=== PATIENT | male | born 1985 | race Caucasian/White ===

== ENCOUNTER 2023-10-14 17:13 | Emergency (ER) | payer OTHER ==
[2023-10-14 17:36] VITALS: TEMP 98.2
--- NOTE | 2023-10-14 19:09 | ED ---
General Adult HPI - General Chief complaint: Extremity Problem,Nontraumatic Stated complaint: left knee leg pain Time Seen by Provider: 10/14/23 18:30 Source: patient, RN notes reviewed Mode of arrival: ambulatory Limitations: no limitations - History of Present Illness Initial comments: 38-year-old male presents emergency department chief complaint of left knee pain and swelling 3 days. He states that there is swelling above the left knee. He reports decreased ROM. Patient states that he underwent total knee replacement around 5 months ago. He does report that he has on Keflex and another antibiotic for an infection in his toe of the right foot. Past medical history includes diabetes and hypertension - Related Data Allergies Allergy/AdvReac Type Severity Reaction Status Date / Time No Known Allergies Allergy Verified 10/14/23 17:25 Review of Systems ROS Statement: Those systems with pertinent positive or pertinent negative responses have been documented in the HPI. ROS Other: All systems not noted in ROS Statement are negative. Past Medical History Past Medical History: Hypertension History of Any Multi-Drug Resistant Organisms: None Reported Past Surgical History: Orthopedic Surgery Additional Past Surgical History / Comment(s): left knee surgery and leg surgery Past Psychological History: Depression Smoking Status: Former smoker Past Alcohol Use History: Occasional Past Drug Use History: Heroin, Opiates General Exam Limitations: no limitations General appearance: alert, in no apparent distress Head exam: Present: atraumatic, normocephalic, normal inspection Eye exam: Present: normal appearance, PERRL, EOMI. Absent: scleral icterus, conjunctival injection, periorbital swelling ENT exam: Present: normal exam, mucous membranes moist Neck exam: Present: normal inspection. Absent: tenderness, meningismus, lymphadenopathy Respiratory exam: Present: normal lung sounds bilaterally. Absent: respiratory distress, wheezes, rales, rhonchi, stridor Cardiovascular Exam: Present: regular rate, normal rhythm, normal heart sounds. Absent: systolic murmur, diastolic murmur, rubs, gallop, clicks Extremities exam: Present: tenderness, normal capillary refill, other (DP and PT pulses 2+, left lower extremity swelling). Absent: full ROM Neurological exam: Present: alert, oriented X3 Psychiatric exam: Present: normal affect, normal mood Skin exam: Present: warm, dry, intact, normal color Course Vital Signs 10/14/23 10/14/23 17:21 22:42 Temperature 98.2 F Pulse Rate 71 84 Respiratory 16 20 Rate Blood Pressure 155/92 180/95 O2 Sat by Pulse 97 98 Oximetry Medical Decision Making - Medical Decision Making Was pt. sent in by a medical professional or institution (SUZANNE Carlson, MYCOLOGY TEACHER, urgent care, hospital, or long-term...) When possible be specific @ -[place] Did you speak to anyone other than the patient for history (EMS, parent, family, police, friend...)? What history was obtained from this source @ -No Did you review nursing and triage notes (agree or disagree)? Why? @ -I reviewed and agree with nursing and triage notes Were old charts reviewed (outside hosp., previous admission, EMS record, old EKG, old radiological studies, urgent care reports/EKG's, long-term records)? Report findings @ -No old charts were reviewed Differential Diagnosis (chest pain, altered mental status, abdominal pain women, abdominal pain men, vaginal bleeding, weakness, fever, dyspnea, syncope, headache, dizziness, GI bleed, back pain, seizure, CVA, palpatations, mental health, musculoskeletal)? @ -Differential Musculoskeletal Muscular strain, contusion, ligament sprain, fracture, arthritis, septic arthritis, bursitis, cellulitis, muscle spasm, nerve compression, DVT, arterial occlusion, herpes zoster, electrolyte abnormality, tumor.... This is not meant t o be in all inclusive list EKG interpreted by me (3pts min.). @ -None X-rays interpreted by me (1pt min.). @ -X-ray left knee shows no evidence acute fracture, prepatellar swelling XR right toes shows no evidence of osteomyelitis CT interpreted by me (1pt min.). @ -None done U/S interpreted by me (1pt. min.). @ -Ultrasound left lower extremity shows no evidence of DVT What testing was considered but not performed or refused? (CT, X-rays, U/S, labs)? Why? @ -None What meds were considered but not given or refused? Why? @ -None Did you discuss the management of the patient with other professionals (professionals i.e. SUZANNE Carlson, MYCOLOGY TEACHER, lab, RT, psych nurse, medical social worker, ore dryer, teacher, loss prevention officer, case specialist)? Give summary @ -No Was smoking cessation discussed for >3mins.? @ -No Was critical care preformed (if so, how long)? @ -No Were there social determinants of health that impacted care today? How? (Homelessness, low income, unemployed, alcoholism, drug addiction, transportation, low edu. Level, literacy, decrease access to med. care, longterm, rehab)? @ -No Was there de-escalation of care discussed even if they declined (Discuss DNR or withdrawal of care, Hospice)? DNR status @ -No What co-morbidities impacted this encounter? (DM, HTN, Smoking, COPD, CAD, Cancer, CVA, ARF, Chemo, Hep., AIDS, mental health diagnosis, sleep apnea, morbid obesity)? @ -None Was patient admitted / discharged? Hospital course, mention meds given and route, prescriptions, significant lab abnormalities, going to OR and other pertinent info. @ -Discharged. Patient is admitted to the emergency department chief complaint of left lower extremity swelling. Patient was sent in by [place]. X-ray left knee shows no evidence of acute fracture, patella swelling. X-ray of the right toes shows no evidence of osteomyelitis. Ultrasound of the left lower extremity shows no evidence of DVT. Patient to continue antibiotics as prescribed. [facility] Patient stable at time of discharge. Case discussed with Dr. Mcdowell, [facility] Undiagnosed new problem with uncertain prognosis? @ -No Drug Therapy requiring intensive monitoring for toxicity (Heparin, Nitro, Insulin, Cardizem)? @ -No Were any procedures done? @ -No Diagnosis/symptom? @ -left leg swelling Acute, or Chronic, or Acute on Chronic? @ -acute Uncomplicated (without systemic symptoms) or Complicated (systemic symptoms)? @ -uncomplicated Side effects of treatment? @ -No Exacerbation, Progression, or Severe Exacerbation? @ -No Poses a threat to life or bodily function? How? (Chest pain, USA, CT, pneumonia, PE, COPD, DKA, ARF, appy, cholecystitis, CVA, Diverticulitis, Homicidal, S uicidal, threat to staff... and all critical care pts) @ -No - Lab Data Result diagrams: 10/14/23 19:07 10/14/23 19:07 Lab Results 10/14/23 10/14/23 10/14/23 Range/Units 19:07 19:07 19:07 WBC 7.7 (3.8-10.6) k/uL RBC 4.32 (4.30-5.90) m/uL Hgb 11.8 L (13.0-17.5) gm/dL Hct 35.3 L (39.0-53.0) % MCV 81.8 (80.0-100.0) fL MCH 27.2 (25.0-35.0) pg MCHC 33.3 (31.0-37.0) g/dL RDW 14.6 (11.5-15.5) % Plt Count 256 (150-450) k/uL MPV 7.0 Neutrophils % 67 % Lymphocytes % 25 % Monocytes % 5 % Eosinophils % 2 % Basophils % 0 % Neutrophils # 5.2 (1.3-7.7) k/uL Lymphocytes # 1.9 (1.0-4.8) k/uL Monocytes # 0.4 (0-1.0) k/uL Eosinophils # 0.1 (0-0.7) k/uL Basophils # 0.0 (0-0.2) k/uL Sodium 136 L (137-145) mmol/L Potassium 4.3 (3.5-5.1) mmol/L Chloride 100 (98-107) mmol/L Carbon Dioxide 28 (22-30) mmol/L Anion Gap 8 mmol/L BUN 23 H (9-20) mg/dL Creatinine 0.71 (0.66-1.25) mg/dL Est GFR (CKD-EPI)AfAm >90 (>60 ml/min/1.73 sqM) Est GFR (CKD-EPI)NonAf >90 (>60 ml/min/1.73 sqM) Glucose 125 H (74-99) mg/dL Plasma Lactic Acid Cornelio 1.1 (0.7-2.0) mmol/L Calcium 9.4 (8.4-10.2) mg/dL Total Bilirubin 0.3 (0.2-1.3) mg/dL AST 20 (17-59) U/L ALT 15 (4-49) U/L Alkaline Phosphatase 74 (38-126) U/L C-Reactive Protein 1.3 H (<1.0) mg/dL Total Protein 7.1 (6.3-8.2) g/dL Albumin 4.1 (3.5-5.0) g/dL Disposition Clinical Impression: Ulcer, Left leg swelling Disposition: HOME SELF-CARE Condition: Stable Instructions (If sedation given, give patient instructions): Chronic Wound Care (ED) Additional Instructions: Utilize compression stockings. Continue antibiotics and take to completion. Return to the emergency department for new or worsening symptoms. Is patient prescribed a controlled substance at d/c from ED?: No Referrals: None,Stated [Primary Care Provider] - 1-2 days [facility] [NON-STAFF] - 1-2 days Forms: Area PCPs
--- NOTE | 2023-10-14 19:37 | US ---
EXAMINATION TYPE: US venous doppler duplex LE LT DATE OF EXAM: 10/14/2023 7:04 PM COMPARISON: NONE CLINICAL INDICATION: Male, 38 years old with history of pain, swelling; Pain and swelling in left kne e x a couple weeks. Pt states hx of DVT in arm last year. No longer on blood thinners SIDE PERFORMED: Left TECHNIQUE: The lower extremity deep venous system is examined utilizing real time linear array sonog madhuri with graded compression, doppler sonography and color-flow sonography. VESSELS IMAGED: Common Femoral Vein Deep Femoral Vein Greater Saphenous Vein * Femoral Vein Popliteal Vein Small Saphenous Vein * Proximal Calf Veins (* superficial vessels) Left Leg: No evidence for DVT. Calf veins limited due to swelling. IMPRESSION: Grayscale, color doppler, spectral doppler imaging performed of the deep veins of the lo wer extremities. There is normal flow, compressibility, vascular waveforms.
[2023-10-14 20:01] LABS: Basophils % (A) 0 %; Eosinophils # (A) 0.1 k/uL (0-0.7); Eosinophils % (A) 2 %; HCT 35.3 % (39.0-53.0); HGB 11.8 gm/dL (13.0-17.5); Lymphocytes # (A) 1.9 k/uL (1.0-4.8); Lymphocytes % (A) 25 %; MCH 27.2 pg (25.0-35.0); MCHC 33.3 g/dL (31.0-37.0); MCV 81.8 fL (80.0-100.0); Monocytes # (A) 0.4 k/uL (0-1.0); Monocytes % (A) 5 %; Neutrophils # (A) 5.2 k/uL (1.3-7.7); Neutrophils % (A) 67 %; Platelet Count 256 k/uL (150-450); RBC 4.32 m/uL (4.30-5.90); RDW 14.6 % (11.5-15.5); WBC 7.7 k/uL (3.8-10.6)
--- NOTE | 2023-10-14 20:01 | XR ---
EXAMINATION TYPE: XR knee complete LT DATE OF EXAM: 10/14/2023 7:40 PM CLINICAL INDICATION:Male, 38 years old with history of pain, swelling; COMPARISON: None. TECHNIQUE: XR knee complete LT; examined in Frontal, lateral and oblique projections. FINDINGS: Soft tissue swelling around the knee. There is total knee arthroplasty changes and tibial plateau fixation hardware. Hardware appears intact. No evidence for osseous erosion. There is pretib ial soft tissue edema. There is a small joint effusion. IMPRESSION: 1. Prepatellar soft tissue edema without acute osseous pathology. No evidence of 2. Post total knee arthroplasty changes with hardware intact and there is a small joint effusion.
[2023-10-14 20:33] LABS: ALT 15 U/L (4-49); AST 20 U/L (17-59); African American GFR (CKD) >90 (>60 ml/min/1.73 sqM); Albumin 4.1 g/dL (3.5-5.0); Alkaline Phosphatase 74 U/L (38-126); Anion Gap 8 mmol/L; Blood Urea Nitrogen 23 mg/dL (9-20); Calcium 9.4 mg/dL (8.4-10.2); Carbon Dioxide 28 mmol/L (22-30); Chloride 100 mmol/L (98-107); Glucose 125 mg/dL (74-99); Non-African American GFR(CKD) >90 (>60 ml/min/1.73 sqM); Potassium 4.3 mmol/L (3.5-5.1); Sodium 136 mmol/L (137-145); Total Bilirubin 0.3 mg/dL (0.2-1.3); Total Protein 7.1 g/dL (6.3-8.2)
[2023-10-14 21:05] LABS: C Reactive Protein 1.3 mg/dL (<1.0)
--- NOTE | 2023-10-14 22:00 | XR ---
EXAMINATION TYPE: XR toes RT DATE OF EXAM: 10/14/2023 9:28 PM CLINICAL INDICATION:Male, 38 years old with history of wound; COMPARISON: None TECHNIQUE: XR toes RT examined in the AP, oblique, and lateral projections. FINDINGS: No evidence of any acute osseous pathology. Mild soft tissue swelling around the first digit. Joints are preserved. No osseous erosion to suggest osteolytic myelitis. IMPRESSION: 1. No evidence of acute fracture. 2. Mild soft tissue swelling around the first digit, No osseous erosion to suggest osteolytic myelit is.
[2023-10-14 23:01] VITALS: BP 180/95; PULSE 84; RESP 20
[2023-10-15 03:32] LABS: Erythrocyte Sedimentation Rate 41 mm/Hr (0-15)
== END 2023-10-14 22:43 | disposition home or self-care (01) ==
LOC: EC 17:13
DX: L97.929 Non-pressure chronic ulcer of unspecified part of left lower leg with unspecified severity (principal); M25.462 Effusion, left knee; M79.89 Other specified soft tissue disorders; I10 Essential (primary) hypertension; Z87.891 Personal history of nicotine dependence; Z86.59 Personal history of other mental and behavioral disorders
CPT/HCPCS: 36415; 80053; 83605; 85025; 85652; 86140; 99284